=== PATIENT | male | born 1960 | race Caucasian/White ===

== ENCOUNTER 2018-02-13 12:00 | Inpatient (IN) | payer MEDICAID ==
[~2018-02-13] VITALS: Ht 188 cm; Wt 116.8 kg
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
[2018-02-13 13:12] LABS: BASOPHILS 0.1 % (0-2); HEMATOCRIT 28.8 % (42.0-54.0); HEMOGLOBIN 8.5 g/dL (13.5-17.5); IMMATURE GRANULOCYTES 0.8 % (0-5); LYMPHOCYTES 26.5 % (15-50); MCH 23.5 pg (26.0-34.0); MCHC 29.5 g/dL (31.0-37.0); MCV 79.8 fL (80.0-100.0); MEAN PLATELET VOLUME 8.6 fL (7.4-10.4); NEUTROPHILS 59.6 % (40-80); PLATELET COUNT 392 10x3/uL (130-400); RBC 3.61 10x6/uL (4.20-6.10); RDW 18.7 % (11.5-14.5); WBC 8.8 10x3/uL (4.8-10.8)
[2018-02-13 13:35] LABS: ALBUMIN 2.1 g/dL (3.4-5.0); ALKALINE PHOSPHATASE 104 U/L (46-116); ALT (SGPT) 8 U/L (10-68); BILIRUBIN - TOTAL 0.21 mg/dL (0.2-1.3); CALC OSMOLALITY 275 mosm/kg (275-300); CALCIUM 9.9 mg/dL (8.5-10.1); CARBON DIOXIDE 31.7 mmol/L (21.0-32.0); CHLORIDE - SERUM 101 mmol/L (98-107); CREATININE - SERUM 0.7 mg/dL (0.6-1.3); GLUCOSE 97 mg/dL (74-106); POTASSIUM - SERUM 3.8 mmol/L (3.5-5.1); PROTEIN - SERUM 7.3 g/dL (6.4-8.2); SODIUM 138 mmol/L (136-145); UREA NITROGEN 12 mg/dL (7-18); eGFR NON AFRICAN AMERICAN > 90 mL/min (90-120)
[2018-02-13 13:45] LABS: CKMB 0.9 U/L (0.0-3.6); CREATINE KINASE 15 UL (21-232); MAGNESIUM - SERUM 1.5 mg/dL (1.8-2.4); PHOSPHOROUS 4.6 mg/dL (2.5-4.9); PRO BNP 244 pg/mL (0-125); URIC ACID 4.6 mg/dL (2.6-7.2)
[2018-02-13 13:48] LABS: TROPONIN-I < 0.017 ng/mL (0.000-0.060)
[2018-02-13 13:55] LABS: INR 1.04 (0.85-1.17); PROTIME 13.2 SECONDS (11.6-15.0)
[2018-02-13 13:56] LABS: APTT 28.8 SECONDS (22.8-39.4)
[2018-02-13 14:37] LABS: D-DIMER-QUANTITATIVE > 20.00 ug/mLFEU (0.20-0.54)
[2018-02-14 02:37] VITALS: BP 134/79; Ht 188 cm; Wt 116.8 kg
[2018-02-14 04:00] VITALS: BP 122/67
[2018-02-14 08:04] VITALS: BP 126/87
[2018-02-14 10:27] LABS: BASOPHILS 0 % (0-2); EOSINOPHILS 0 % (0-7); HEMATOCRIT 29.3 % (42.0-54.0); HEMOGLOBIN 8.9 g/dL (13.5-17.5); IMMATURE GRANULOCYTES 0.4 % (0-5); LYMPHOCYTES 10.7 % (15-50); MCH 23.8 pg (26.0-34.0); MCHC 30.4 g/dL (31.0-37.0); MCV 78.3 fL (80.0-100.0); MEAN PLATELET VOLUME 8.7 fL (7.4-10.4); MONOCYTES 1.2 % (2-11); NEUTROPHILS 87.7 % (40-80); PLATELET COUNT 408 10x3/uL (130-400); RBC 3.74 10x6/uL (4.20-6.10); RDW 18.1 % (11.5-14.5); WBC 8.2 10x3/uL (4.8-10.8)
[2018-02-14 10:52] LABS: ALBUMIN 2.1 g/dL (3.4-5.0); ALKALINE PHOSPHATASE 108 U/L (46-116); ALT (SGPT) 9 U/L (10-68); BILIRUBIN - TOTAL 0.23 mg/dL (0.2-1.3); CALCIUM 9.3 mg/dL (8.5-10.1); CARBON DIOXIDE 28.5 mmol/L (21.0-32.0); CHLORIDE - SERUM 100 mmol/L (98-107); PROTEIN - SERUM 7.7 g/dL (6.4-8.2); SODIUM 136 mmol/L (136-145); UREA NITROGEN 12 mg/dL (7-18)
[2018-02-14 10:54] LABS: C-REACTIVE PROTEIN 23.2 mg/dL (0.0-0.9); CALC OSMOLALITY 283 mosm/kg (275-300); CREATININE - SERUM 0.9 mg/dL (0.6-1.3); GLUCOSE 309 mg/dL (74-106); eGFR NON AFRICAN AMERICAN > 90 mL/min (90-120)
[2018-02-14 12:18] VITALS: BP 129/81
[2018-02-14 15:39] VITALS: BP 140/83
[2018-02-14 16:20] LABS: ERYTHROCYTE SEDIMENTATION RATE 125 mm/hr (0-20)
[2018-02-14 19:54] VITALS: BP 143/86
[2018-02-15] VITALS (7 sets, daily range): BP systolic 104–142; BP diastolic 74–87
[2018-02-15 09:13] LABS: % SATURATION 27 % (15-55); IRON 64 ug/dl (35-150); TOTAL IRON BIND CAPACITY 236 ug/dl (260-445); UNSAT IRON BIND CAPACITY 172 ug/dl (150-375)
[2018-02-16 04:00] VITALS: BP 152/84
[2018-02-16 07:47] VITALS: BP 153/88
[2018-02-16 12:23] VITALS: BP 144/89
[2018-02-16 15:55] VITALS: BP 147/92
[2018-02-16 19:53] VITALS: BP 156/92
[2018-02-17] VITALS: BP 157/93; BP 161/93
[2018-02-17 04:00] VITALS: BP 157/93
[2018-02-17 08:17] VITALS: BP 153/96
[2018-02-17 20:00] VITALS: BP 150/90
[2018-02-18] VITALS: BP 145/96
[2018-02-18 04:00] VITALS: BP 163/98
[2018-02-18 09:07] VITALS: BP 147/85
[2018-02-18 13:26] VITALS: BP 153/99
[2018-02-18 16:19] VITALS: BP 155/89
[2018-02-18 20:00] VITALS: BP 156/92
[2018-02-19] VITALS: BP 149/98
[2018-02-19 04:00] VITALS: BP 142/91
[2018-02-19 06:50] LABS: BASOPHILS 0.3 % (0-2); EOSINOPHILS 0 % (0-7); HEMATOCRIT 32.5 % (42.0-54.0); HEMOGLOBIN 9.8 g/dL (13.5-17.5); IMMATURE GRANULOCYTES 6.3 % (0-5); LYMPHOCYTES 8.5 % (15-50); MCH 24.1 pg (26.0-34.0); MCHC 30.2 g/dL (31.0-37.0); MCV 79.9 fL (80.0-100.0); MEAN PLATELET VOLUME 9.3 fL (7.4-10.4); MONOCYTES 3.3 % (2-11); NEUTROPHILS 81.6 % (40-80); PLATELET COUNT 327 10x3/uL (130-400); RBC 4.07 10x6/uL (4.20-6.10); RDW 18.9 % (11.5-14.5); WBC 10.8 10x3/uL (4.8-10.8)
[2018-02-19 06:58] LABS: ALBUMIN 2.1 g/dL (3.4-5.0); ALKALINE PHOSPHATASE 110 U/L (46-116); ALT (SGPT) 39 U/L (10-68); BILIRUBIN - TOTAL 0.15 mg/dL (0.2-1.3); CALC OSMOLALITY 287 mosm/kg (275-300); CALCIUM 7.7 mg/dL (8.5-10.1); CARBON DIOXIDE 28.3 mmol/L (21.0-32.0); CHLORIDE - SERUM 101 mmol/L (98-107); CREATININE - SERUM 0.6 mg/dL (0.6-1.3); GLUCOSE 198 mg/dL (74-106); POTASSIUM - SERUM 3.5 mmol/L (3.5-5.1); PROTEIN - SERUM 6.1 g/dL (6.4-8.2); SODIUM 139 mmol/L (136-145); UREA NITROGEN 23 mg/dL (7-18); eGFR NON AFRICAN AMERICAN > 90 mL/min (90-120)
[2018-02-19 08:21] VITALS: BP 153/91
[2018-02-19] MEDS ORDERED: MEDROL DOSE PACK4 MG PO (08:43)
[2018-02-19] MEDS ORDERED: ULTRAM50 MG PO (08:44)
== END 2018-02-19 11:44 | disposition home or self-care (01) | DRG 547 ==
LOC: D.ER 12:00 → D.MS 17:35
PROVIDERS: Family Medicine
DX: M06.9 Rheumatoid arthritis, unspecified (principal); D63.8 Anemia in other chronic diseases classified elsewhere; F12.90 Cannabis use, unspecified, uncomplicated; F17.200 Nicotine dependence, unspecified, uncomplicated